=== PATIENT | male | born 1960 | race Caucasian/White ===

== ENCOUNTER 2016-08-02 09:25 | Emergency (ER) | payer MEDICAID ==
[2016-08-02 10:17] LABS: BASO % 0.4 % (0-6); EOS % 1.6 % (0-6); GRAN % 72.9 % (47-80); HEMATOCRIT 40.7 % (42.0-52.0); HEMOGLOBIN 13.2 gm/dl (14.0-18.0); LYMPH % 19.1 % (16-45); MEAN CELL VOLUME 84.6 fl (81-97); MEAN CORPUSCULAR HEMOGLOBIN 27.4 pg (27-33); MEAN CORPUSCULAR HGB CONC 32.4 g/dl (32-36); MEAN PLATELET VOLUME 11.1 fl (7.4-10.4); PLATELET COUNT 197 K/uL (130-400); RED BLOOD COUNT 4.81 M/uL (4.40-5.70); RED CELL DISTRIBUTION WIDTH 15.2 % (11.5-14.5); WHITE BLOOD COUNT W/O DIFF 7.5 K/uL (4.2-12.2)
--- NOTE | 2016-08-02 10:17 | Emergency Department Record ---
History of Present Illness - General Chief complaint: Flank Pain Stated complaint: LEFT SIDE FLANK PAIN Time Seen by Provider: 08/02/16 09:48 Source: Patient Mode of Arrival: Ambulatory Limitations: No limitations - History of Present Illness Initial comments: pt has been having l flank pain for a month that is getting progressively worse. he thinks it is his kidney or liver. he also has been having a productive cough and congestion -: Month(s) Location: Left flank Radiation: None Severity: Moderate Severity scale (1-10): 7 Quality: Sharp, Stabbing Consistency: Constant Worsens with: Movement - Related Data Sexually active: Yes Previous Rx's Medication Instructions Recorded Azithromycin [Zithromax] 250 mg PO DAILY #6 tab 08/02/16 Cyclobenzaprine HCl [Flexeril] 10 mg PO QHS #10 tab 08/02/16 Allergies Allergy/AdvReac Type Severity Reaction Status Date / Time No Known Drug Allergies Allergy Unverified 05/29/16 10:18 Travel Screening - Travel/Exposure Within Last 30 Days Have you traveled within the last 30 days?: No - Travel/Exposure Within Last Year Have you traveled outside the [place] in the last year?: No - Additonal Travel Details Have you been exposed to anyone with a communicable illness?: No - Travel Symptoms Symptom Screening: None Review of Systems Reviewed: No additional complaints except as noted below Constitutional: Reports: As per HPI. Denies: Chills, Fever, Malaise, Night sweats, Weakness, Weight change Eyes: Reports: As per HPI. Denies: Eye discharge, Eye pain, Photophobia, Vision change ENT: Reports: As per HPI. Denies: Congestion, Dental pain, Ear pain, Epistaxis , Hearing loss, Throat pain Respiratory: Reports: As per HPI. Denies: Cough, Dyspnea, Hemoptysis, Stridor, Wheezes Cardiovascular: Reports: As per HPI. Denies: Arrhythmia, Chest pain, Dyspnea on exertion, Edema, Murmurs, Orthopnea, Palpitations, Paroxysmal nocturnal dyspnea, Rheumatic Fever, Syncope Endocrine: Reports: As per HPI. Denies: Fatigue, Heat or cold intolerance, Polydipsia, Polyuria Gastrointestinal: Reports: As per HPI. Denies: Abdominal pain, Constipation, Diarrhea, Hematemesis, Hematochezia, Melena, Nausea, Vomiting Genitourinary: Reports: As per HPI. Denies: Dysuria, Frequency, Hematuria, Incontinence, Retention, Testicular pain, Testicular mass, Urgency Musculoskeletal: Reports: As per HPI. Denies: Arthralgia, Back pain, Gout, Joint swelling, Myalgia, Neck pain Skin: Reports: As per HPI. Denies: Bruising, Change in color, Change in hair/ nails, Lesions, Pruritus, Rash Neurological: Reports: As per HPI. Denies: Abnormal gait, Confusion, Headache, Numbness, Paresthesias, Seizure, Tingling, Tremors, Vertigo, Weakness Psychiatric: Reports: As per HPI. Denies: Anxiety, Auditory hallucinations, Depression, Homicidal thoughts, Suicidal thoughts, Visual hallucinations Hematological/Lymphatic: Reports: As per HPI. Denies: Anemia, Blood Clots, Easy bleeding, Easy bruising, Swollen glands Past Medical History - SOCIAL HISTORY Smoking Status: Never smoker Alcohol Use: None Drug Use: None - RESPIRATORY Hx Respiratory Disorders: Yes Hx Sleep Apnea: Yes Hx of CPAP: Yes - CARDIOVASCULAR Hx Cardio Disorders: Yes Hx Deep Vein Thrombosis: Yes Hx Hypertension: Yes - NEURO Hx Neuro Disorders: No - GI Hx GI Disorders: Yes Hx Reflux: Yes - Hx Genitourinary Disorders: No - ENDOCRINE Hx Endocrine Disorders: No Hx Diabetes: Yes - MUSCULOSKELETAL Hx Musculoskeletal Disorders: Yes Hx Arthritis: Yes (Hips and joints) Hx Gout: Yes - PSYCH Hx Psych Problems: No - HEMATOLOGY/ONCOLOGY Hx Hematology/Oncology Disorders: Yes Hx Cancer: Yes (Benign Esophogeal (Barrets Disease)) Hx Chemotherapy: No Hx Radiation Therapy: No Hx Blood Transfusions: Yes (with hip replacement) Hx Blood Transfusion Reaction: No Family Medical History Any Significant Family History?: Yes Hx Cancer: Father Hx Diabetes: Father, Mother, Brother/Sister Hx Heart Disease: Father Hx HTN: Brother/Sister Hx Resp Disorders: Father Physical Exam - General General Appearance: Alert, Oriented x3, Cooperative, Mild distress - Head Head exam: Normal inspection - Eye Eye exam: Normal appearance, PERRL, EOMI Pupils: Normal accommodation - ENT ENT exam: Normal exam, Mucous membranes moist, Normal external ear exam, Normal orophraynx Ear exam: Normal external inspection. negative: External canal tenderness Nasal Exam: Normal inspection. negative: Discharge, Sinus tenderness Mouth exam: Normal external inspection, Tongue normal Teeth exam: Normal inspection. negative: Dental caries Throat exam: Normal inspection. negative: Tonsillar erythema, Tonsillar exudate - Neck Neck exam: Normal inspection, Full ROM. negative: Tenderness - Respiratory Respiratory exam: Normal lung sounds bilaterally. negative: Respiratory distress - Cardiovascular Cardiovascular Exam: Regular rate, Normal rhythm, Normal heart sounds - GI/Abdominal GI/Abdominal exam: Soft, Normal bowel sounds. negative: Tenderness - Rectal Rectal exam: Deferred - exam: Deferred - Extremities Extremities exam: Normal inspection, Full ROM, Normal capillary refill. negative: Tenderness - Back Back exam: Reports: Normal inspection, Full ROM. Denies: Muscle spasm, Rash noted, Tenderness - Neurological Neurological exam: Alert, CN II-XII intact, Normal gait, Oriented X3 - Psychiatric Psychiatric exam: Normal affect, Normal mood - Skin Skin exam: Dry, Intact, Normal color, Warm Course Vital Signs 08/02/16 09:30 Temperature 97.4 F L Pulse Rate 99 H Respiratory 20 Rate Blood Pressure 156/99 Pulse Ox 94 L Medical Decision Making - Lab Data Result diagrams: 08/02/16 10:08 08/02/16 10:08 Disposition Disposition: Discharge Clinical Impression: Bronchitis, Flank pain Disposition: Home, Self-Care Condition: (1) Good Instructions: Flank Pain (ED), Acute Bronchitis (ED), Lumbar Radiculopathy (ED) , Lumbar Disc Herniation (ED) Additional Instructions: follow up with family doctor. return sooner if worse. no lifting more then 5 lbs for 5 days Prescriptions: Cyclobenzaprine HCl [Flexeril] 10 mg PO QHS #10 tab Azithromycin [Zithromax] 250 mg PO DAILY #6 tab Forms: Patient Portal Access
[2016-08-02 10:22] LABS: URINE APPEARANCE CLEAR; URINE BILIRUBIN NEGATIVE (NEGATIVE); URINE BLOOD TRACE-I (NEGATIVE); URINE COLOR YELLOW; URINE GLUCOSE (UA) NEGATIVE (NEGATIVE); URINE KETONE NEGATIVE (NEGATIVE); URINE LEUKOCYTE ESTERASE NEGATIVE (NEGATIVE); URINE NITRITE NEGATIVE (NEGATIVE); URINE UROBILINOGEN 0.2 E.U./dL (0.20 - 1.00)
[2016-08-02 10:25] LABS: ALB/GLOB RATIO 1.4 (1.1-1.8); ALBUMIN 4.5 gm/dL (3.5-5.0); ALKALINE PHOSPHATASE 84 U/L (38-126); ALT/SGPT 50 U/L (21-72); ANION GAP 16.5 (7-16); AST/SGOT 32 U/L (17-59); BILIRUBIN,TOTAL 0.47 mg/dL (0.2-1.3); BLOOD UREA NITROGEN 19 mg/dL (9-20); CARBON DIOXIDE 24.5 mmol/L (22-30); CREATININE 0.9 mg/dL (0.66-1.25); EST GLOMERULAR FILTRATION RATE > 60 ml/min; GLUCOSE,RANDOM 127 mg/dL (70-110); LIPASE 85 U/L (23-300); TOTAL PROTEIN 7.8 gm/dL (6.3-8.2)
[2016-08-02 10:29] LABS: URINE BACTERIA NONE SEEN; URINE EPITHELIAL CELLS NONE SEEN (FEW); URINE RBC 0 - 2 (NONE SEEN); URINE WBC NONE SEEN (0-2/hpf)
== END 2016-08-02 11:54 | disposition home or self-care (01) ==
LOC: ER 09:25
DX: J20.9 Acute bronchitis, unspecified (principal); R10.32 Left lower quadrant pain; M54.5 Low back pain
CPT/HCPCS: 74176; 80053; 81001; 83690; 85025; 99283

== ENCOUNTER 2016-12-22 20:07 | Emergency (ER) | payer MEDICAID ==
[2016-12-22 20:30] LABS: URINE APPEARANCE CLEAR; URINE BILIRUBIN NEGATIVE (NEGATIVE); URINE BLOOD TRACE-I (NEGATIVE); URINE COLOR YELLOW; URINE GLUCOSE (UA) NEGATIVE (NEGATIVE); URINE KETONE NEGATIVE (NEGATIVE); URINE LEUKOCYTE ESTERASE NEGATIVE (NEGATIVE); URINE NITRITE NEGATIVE (NEGATIVE); URINE UROBILINOGEN 0.2 E.U./dL (0.20 - 1.00)
[2016-12-22] MEDS ORDERED: IPRATROPIUM/ALBUTEROL (0.5MG/3MG) NEB INH ONE (20:36)
[2016-12-22 20:43] LABS: URINE EPITHELIAL CELLS 0 - 2 (FEW); URINE WBC 0 - 2 (0-2/hpf)
[2016-12-22] MEDS ORDERED: 0.9 % SODIUM CHLORIDE 1,000 ML BAG IV ONE (20:55)
[2016-12-22 21:32] LABS: BASO % 0.2 % (0-6); EOS % 2.2 % (0-6); GRAN % 73.5 % (47-80); HEMATOCRIT 40.2 % (42.0-52.0); HEMOGLOBIN 13.1 gm/dl (14.0-18.0); LYMPH % 16.9 % (16-45); MEAN CELL VOLUME 86.6 fl (81-97); MEAN CORPUSCULAR HEMOGLOBIN 28.2 pg (27-33); MEAN CORPUSCULAR HGB CONC 32.6 g/dl (32-36); MEAN PLATELET VOLUME 11.4 fl (7.4-10.4); MONO % 7.2 % (0-9); PLATELET COUNT 201 K/uL (130-400); RED BLOOD COUNT 4.64 M/uL (4.40-5.70); RED CELL DISTRIBUTION WIDTH 15.3 % (11.5-14.5); WHITE BLOOD COUNT W/O DIFF 9.2 K/uL (4.2-12.2)
[2016-12-22] MEDS ORDERED: ONDANSETRON HCL IV 4 MG/2 ML VIAL IVP ONE (21:46)
[2016-12-22] MEDS ORDERED: HYDROMORPHONE HCL 1 MG/ML CPJ IVP ONE (21:46)
[2016-12-22 21:47] LABS: ALBUMIN 4.3 gm/dL (3.5-5.0); ALKALINE PHOSPHATASE 88 U/L (38-126); ALT/SGPT 50 U/L (21-72); ANION GAP 13.5 (7-16); AST/SGOT 53 U/L (17-59); BILIRUBIN,TOTAL 0.75 mg/dL (0.2-1.3); BLOOD UREA NITROGEN 19 mg/dL (9-20); CARBON DIOXIDE 25.5 mmol/L (22-30); CREATININE 0.9 mg/dL (0.66-1.25); EST GLOMERULAR FILTRATION RATE > 60 ml/min; GLUCOSE,RANDOM 167 mg/dL (70-110); LIPASE 85 U/L (23-300); TOTAL PROTEIN 7.6 gm/dL (6.3-8.2)
[2016-12-22] MEDS ORDERED: PROMETHAZINE HCL 25 MG/ML VIAL IVP ONE (23:23)
--- NOTE | 2016-12-22 23:25 | Emergency Department Record ---
History of Present Illness - General Chief Complaint: Abdominal Pain Stated Complaint: PAIN IN RT ABD AND NIDIA Time Seen by Provider: 12/22/16 20:51 Source: Patient Mode of Arrival: Ambulatory Limitations: No limitations - History of Present Illness Initial Comments: pt has had ruq pain for 4 days. it is constant. he also feels sob and has a prod yellow cough. the pain feels similar to when he had gallbladder problems. Onset/Timin -: Days(s) Location: RUQ Radiation: None Migration to: No migration Severity: Moderate Quality: Other Consistency: Constant Improves With: Nothing Worsens With: Nothing Associated Symptoms: Denies other symptoms - Related Data Home Medications Medication Instructions Recorded Confirmed Last Taken Multivitamin [Men's Multi-Vitamin] 1 each PO DAILY tab 10/16/16 12/22/16 Unknown Previous Rx's Medication Instructions Recorded Amoxicillin/Potassium Clav 1 tab PO BID #20 tab 12/23/16 [Augmentin 875-125 Tablet] Allergies Allergy/AdvReac Type Severity Reaction Status Date / Time No Known Drug Allergies Allergy Unverified 12/04/16 09:57 Travel Screening - Travel/Exposure Within Last 30 Days Have you traveled within the last 30 days?: No - Travel/Exposure Within Last Year Have you traveled outside the [place] in the last year?: No - Additonal Travel Details Have you been exposed to anyone with a communicable illness?: No - Travel Symptoms Symptom Screening: None Review of Systems Reviewed: No additional complaints except as noted below Constitutional: Reports: As per HPI. Denies: Chills, Fever, Malaise, Night sweats, Weakness, Weight change Eyes: Reports: As per HPI. Denies: Eye discharge, Eye pain, Photophobia, Vision change ENT: Reports: As per HPI. Denies: Congestion, Dental pain, Ear pain, Epistaxis , Hearing loss, Throat pain Respiratory: Reports: As per HPI. Denies: Cough, Dyspnea, Hemoptysis, Stridor, Wheezes Cardiovascular: Reports: As per HPI. Denies: Arrhythmia, Chest pain, Dyspnea on exertion, Edema, Murmurs, Orthopnea, Palpitations, Paroxysmal nocturnal dyspnea, Rheumatic Fever, Syncope Endocrine: Reports: As per HPI. Denies: Fatigue, Heat or cold intolerance, Polydipsia, Polyuria Gastrointestinal: Reports: As per HPI. Denies: Abdominal pain, Constipation, Diarrhea, Hematemesis, Hematochezia, Melena, Nausea, Vomiting Genitourinary: Reports: As per HPI. Denies: Dysuria, Frequency, Hematuria, Incontinence, Retention, Testicular pain, Testicular mass, Urgency Musculoskeletal: Reports: As per HPI. Denies: Arthralgia, Back pain, Gout, Joint swelling, Myalgia, Neck pain Skin: Reports: As per HPI. Denies: Bruising, Change in color, Change in hair/ nails, Lesions, Pruritus, Rash Neurological: Reports: As per HPI. Denies: Abnormal gait, Confusion, Headache, Numbness, Paresthesias, Seizure, Tingling, Tremors, Vertigo, Weakness Psychiatric: Reports: As per HPI. Denies: Anxiety, Auditory hallucinations, Depression, Homicidal thoughts, Suicidal thoughts, Visual hallucinations Hematological/Lymphatic: Reports: As per HPI. Denies: Anemia, Blood Clots, Easy bleeding, Easy bruising, Swollen glands Past Medical History - SOCIAL HISTORY Smoking Status: Never smoker Alcohol Use: None Drug Use: None - RESPIRATORY Hx Respiratory Disorders: Yes Hx Sleep Apnea: Yes Hx of CPAP: Yes - CARDIOVASCULAR Hx Cardio Disorders: Yes Hx Deep Vein Thrombosis: Yes Hx Hypertension: Yes - NEURO Hx Neuro Disorders: No - GI Hx GI Disorders: Yes Hx Reflux: Yes - Hx Genitourinary Disorders: No - ENDOCRINE Hx Endocrine Disorders: No Hx Diabetes: Yes - MUSCULOSKELETAL Hx Musculoskeletal Disorders: Yes Hx Arthritis: Yes (Hips and joints) Hx Gout: Yes - PSYCH Hx Psych Problems: No - HEMATOLOGY/ONCOLOGY Hx Hematology/Oncology Disorders: Yes Hx Cancer: Yes (Benign Esophogeal (Barrets Disease)) Hx Chemotherapy: No Hx Radiation Therapy: No Hx Blood Transfusions: Yes (with hip replacement) Hx Blood Transfusion Reaction: No Family Medical History Any Significant Family History?: No Hx Cancer: Father Hx Diabetes: Father, Mother, Brother/Sister Hx Heart Disease: Father Hx HTN: Brother/Sister Hx Resp Disorders: Father Physical Exam - General General Appearance: Alert, Oriented x3, Cooperative, Mild distress - Head Head exam: Normal inspection - Eye Eye exam: Normal appearance, PERRL, EOMI Pupils: Normal accommodation - ENT ENT exam: Normal exam, Mucous membranes moist, Normal external ear exam, Normal orophraynx Ear exam: Normal external inspection. negative: External canal tenderness Nasal Exam: Normal inspection. negative: Discharge, Sinus tenderness Mouth exam: Normal external inspection, Tongue normal Teeth exam: Normal inspection. negative: Dental caries Throat exam: Normal inspection. negative: Tonsillar erythema, Tonsillar exudate - Neck Neck exam: Normal inspection, Full ROM. negative: Tenderness - Respiratory Respiratory exam: Normal lung sounds bilaterally. negative: Respiratory distress - Cardiovascular Cardiovascular Exam: Regular rate, Normal rhythm, Normal heart sounds - GI/Abdominal GI/Abdominal exam: Soft, Normal bowel sounds, Tenderness (ruq) - Rectal Rectal exam: Deferred - exam: Deferred - Extremities Extremities exam: Normal inspection, Full ROM, Normal capillary refill. negative: Tenderness - Back Back exam: Reports: Normal inspection, Full ROM. 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 pt has coughing jags which are productive and strain abdominal wall Medical Decision Making - Lab Data Result diagrams: 12/22/16 20:34 12/22/16 20:34 Lab Results 12/22/16 12/22/16 12/22/16 Range/Units 20:20 20:34 20:34 WBC 9.2 (4.2-12.2) K/uL RBC 4.64 (4.40-5.70) M/uL Hgb 13.1 L (14.0-18.0) gm/dl Hct 40.2 L (42.0-52.0) % MCV 86.6 (81-97) fl MCH 28.2 (27-33) pg MCHC 32.6 (32-36) g/dl RDW 15.3 H (11.5-14.5) % Plt Count 201 (130-400) K/uL MPV 11.4 H (7.4-10.4) fl Gran % 73.5 (47-80) % Lymphocytes % 16.9 (16-45) % Monocytes % 7.2 (0-9) % Eosinophils % 2.2 (0-6) % Basophils % 0.2 (0-6) % Sodium 141 (136-145) mmol/L Potassium 4.1 (3.5-5.1) mmol/L Chloride 102 (98-107) mmol/L Carbon Dioxide 25.5 (22-30) mmol/L Anion Gap 13.5 (7-16) BUN 19 (9-20) mg/dL Creatinine 0.9 (0.66-1.25) mg/dL Estimated GFR > 60 ml/min Random Glucose 167 H (70-110) mg/dL Calcium 9.1 (8.5-10.1) mg/dL Total Bilirubin 0.75 (0.2-1.3) mg/dL Direct Bilirubin 0.0 (0-0.3) mg/dL AST 53 (17-59) U/L ALT 50 (21-72) U/L Alkaline Phosphatase 88 (38-126) U/L Total Protein 7.6 (6.3-8.2) gm/dL Albumin 4.3 (3.5-5.0) gm/dL Lipase 85 (23-300) U/L Urine Color Yellow Urine Appearance Clear Urine pH 6.0 (5.0-8.0) Ur Specific [place] >= 1.030 (1.002-1.030) Urine Protein 100 mg/dl H (NEGATIVE) Urine Glucose (UA) Negative (NEGATIVE) Urine Clinitest Urine Ketones Negative (NEGATIVE) Urine Blood Trace-i (NEGATIVE) Urine Nitrite Negative (NEGATIVE) Urine Bilirubin Negative (NEGATIVE) Urine Ictotest Prot Sulfosalicylic Acd Urine Urobilinogen 0.2 (0.20 - 1.00) E.U./dL Ur Leukocyte Esterase Negative (NEGATIVE) Urine RBC 3 - 6 (NONE SEEN) Urine WBC 0 - 2 (0-2/hpf) Ur Epithelial Cells 0 - 2 (FEW) 12/22/16 Range/Units 20:55 WBC (4.2-12.2) K/uL RBC (4.40-5.70) M/uL Hgb (14.0-18.0) gm/dl Hct (42.0-52.0) % MCV (81-97) fl MCH (27-33) pg MCHC (32-36) g/dl RDW (11.5-14.5) % Plt Count (130-400) K/uL MPV (7.4-10.4) fl Gran % (47-80) % Lymphocytes % (16-45) % Monocytes % (0-9) % Eosinophils % (0-6) % Basophils % (0-6) % Sodium (136-145) mmol/L Potassium (3.5-5.1) mmol/L Chloride (98-107) mmol/L Carbon Dioxide (22-30) mmol/L Anion Gap (7-16) BUN (9-20) mg/dL Creatinine (0.66-1.25) mg/dL Estimated GFR ml/min Random Glucose (70-110) mg/dL Calcium (8.5-10.1) mg/dL Total Bilirubin (0.2-1.3) mg/dL Direct Bilirubin (0-0.3) mg/dL AST (17-59) U/L ALT (21-72) U/L Alkaline Phosphatase (38-126) U/L Total Protein (6.3-8.2) gm/dL Albumin (3.5-5.0) gm/dL Lipase (23-300) U/L Urine Color Cancelled Urine Appearance Cancelled Urine pH Cancelled (5.0-8.0) Ur Specific [place] Cancelled (1.002-1.030) Urine Protein Cancelled (NEGATIVE) Urine Glucose (UA) Cancelled (NEGATIVE) Urine Clinitest Cancelled Urine Ketones Cancelled (NEGATIVE) Urine Blood Cancelled (NEGATIVE) Urine Nitrite Cancelled (NEGATIVE) Urine Bilirubin Cancelled (NEGATIVE) Urine Ictotest Cancelled Prot Sulfosalicylic Acd Cancelled Urine Urobilinogen Cancelled (0.20 - 1.00) E.U./dL Ur Leukocyte Esterase Cancelled (NEGATIVE) Urine RBC (NONE SEEN) Urine WBC (0-2/hpf) Ur Epithelial Cells (FEW) Disposition Disposition: Discharge Clinical Impression: Bronchitis, Adrenal nodule, RUQ abdominal pain Hypertension Qualifiers: Hypertension type: essential hypertension Qualified Code(s): I10 - Essential ( primary) hypertension Disposition: Home, Self-Care Condition: (1) Good Instructions: Acute Bronchitis (ED), Acute Abdominal Pain (ED) Additional Instructions: follow on saturday with family doctor regarding abdominal pain, adrenal nodule and bronchitis. recheck tomorrow if not better. return sooner if worse. Prescriptions: Amoxicillin/Potassium Clav [Augmentin 875-125 Tablet] 1 tab PO BID #20 tab Forms: Patient Portal Access Quality - Quality Measures Quality Measures: N/A - Blood Pressure Screening Blood Pressure Classification: Hypertensive Reading Systolic Measurement: 163 Diastolic Measurement: 98 Screening for High Blood Pressure: < First Hypertensive BP, F/U Documented > [ G8950] First Hypertensive Follow-up Interventions: Follow-up with rescreen GT 1 day and LT 4 weeks., Referral to alternative/primary care provider.
[2016-12-23] MEDS ORDERED: HYDROMORPHONE HCL 1 MG/ML CPJ IVP ONE (00:15)
[2016-12-23] MEDS ORDERED: AMOXICILLIN/POTASSIUM CLAV 875MG/125MG TABLET PO ONE (00:16)
[2016-12-23] MEDS ORDERED: ALBUTEROL SULFATE (0.083%) 2.5 MG/3 ML NEB INH ONE (00:53)
--- NOTE | 2016-12-25 06:35 | CT SCAN REPORT ---
DATE: 12/22/2016. EXAM: CT OF THE ABDOMEN AND PELVIS. HISTORY: Right upper quadrant pain. TECHNIQUE: CT of the abdomen and pelvis was performed following IV administration of 96 mL of Omnipaque 300 contrast. Oral contrast was also utilized. COMPARISON: Prior CT from 08/02/2016. FINDINGS: Limited evaluation of the lung bases is unremarkable. Osseous structures are grossly intact. Diffuse fatty infiltrative change to the liver. The spleen is unremarkable. There is a stable right adrenal nodule measuring 1.4 x 1.0 cm. Subtle nodularity of the left adrenal gland is also demonstrated , unchanged. The pancreas and kidneys are unremarkable. No evidence for bowel obstruction. Not stated previously, there are bilateral hip prostheses with limited evaluation of portions of the pelvis due to artifact. No free air or free fluid. Fat-containing left inguinal hernia. No pericecal inflammation. The appendix is not well seen. Correlate with surgical history. IMPRESSION: 1. DIFFUSE FATTY INFILTRATIVE CHANGE TO THE LIVER. 2. STABLE ADRENAL NODULES. 3. FAT-CONTAINING LEFT INGUINAL HERNIA. JOB NUMBER: [id number] MTDD
--- NOTE | 2016-12-25 06:38 | RADIOLOGY REPORT ---
DATE: 12/22/2016. EXAM: TWO VIEWS OF THE CHEST. HISTORY: Cough. TECHNIQUE: Frontal and lateral views of the chest. COMPARISON: Chest dated 06/14/2015. FINDINGS: The heart size is normal. Mild elevation of the right hemidiaphragm. Total thickening along the lateral right hemithorax, unchanged. Calcified granuloma over the left lung base. No pneumothorax. IMPRESSION: NO ACUTE CARDIOPULMONARY PROCESS. JOB NUMBER: [id number] MTDD
== END 2016-12-23 01:13 | disposition home or self-care (01) ==
LOC: ER 20:07
DX: J20.9 Acute bronchitis, unspecified (principal); E27.9 Disorder of adrenal gland, unspecified; R10.11 Right upper quadrant pain; I10 Essential (primary) hypertension
CPT/HCPCS: 99284 ×2; 96376; 96374; 96375; 83690; 85025; 80076; 80048; 81001; 71020; 74177; 94640 ×2; Q9967; J2405; J1170 ×2; J2550; J7030; J7613

== ENCOUNTER 2019-07-16 10:47 | Day surgery (SDC) | payer MEDICAID ==
[2019-07-16] MEDS ORDERED: LIDOCAINE 2% MDV (20MG/ML) 20ML VIAL IV ONE (10:48)
[2019-07-16] MEDS ORDERED: PROPOFOL 10 MG/ML VIAL IV ONE (10:48)
--- NOTE | 2019-07-17 06:50 | Operative Note ---
OPERATION: COLONOSCOPY with cold snare and cold forceps polypectomies. PREOPERATIVE DIAGNOSIS: Hemoccult-positive stool. POSTOPERATIVE DIAGNOSIS: Colon polyps. PREPARATION QUALITY: Good. ESTIMATED BLOOD LOSS: Minimum. SPECIMENS: Descending colon, sigmoid colon, and rectum. PROCEDURE: After informed consent was obtained from the patient, he was placed in the left lateral decubitus position in the endoscopy suite, sedated and monitored by the department of anesthesia. Digital rectal exam was unremarkable. A well-lubricated [id number] colonoscope was inserted into the rectum and advanced to the cecum. The cecum, cecal bulb, ileocecal valve, appendiceal orifice, ascending colon, and transverse colon were unremarkable. The descending colon revealed a 5 mm polyp removed with a cold snare. The sigmoid colon revealed 2 diminutive polyps each removed with a cold forceps. The rectum revealed 2 polyps removed with a cold snare. Polyps range in size from 4-6 mm. The endoscope was straightened, the rectal ampulla deflated, and the endoscope was removed. RECOMMENDATIONS: The patient should resume his medications and diet. He will require repeat colonoscopy in 3-5 years pending tissue histology. As always, thank you for allowing me to participate in the healthcare of your patients. ERIC
== END 2019-07-16 13:00 | disposition home or self-care (01) ==
LOC: HOP 10:47
PROVIDERS: ATTEND Internal Medicine Gastroenterology
DX: K63.5 Polyp of colon (principal); D12.5 Benign neoplasm of sigmoid colon; D12.8 Benign neoplasm of rectum; E11.9 Type 2 diabetes mellitus without complications; I10 Essential (primary) hypertension; Z79.84 Long term (current) use of oral hypoglycemic drugs; E78.00 Pure hypercholesterolemia, unspecified